=== PATIENT | female | born 1970 | race Caucasian/White ===

== ENCOUNTER → 2023-10-05 10:18 | Outpatient (REF) | payer OTHER, BC, SELFPAY ==
[2023-10-05 14:54] LABS: Hepatitis B Surface Antibody Negative
[2023-10-07 15:55] LABS: Varicella Zoster IgG (VZV) Positive
[2023-10-07 18:40] LABS: Quantiferon Mitogen minus NIL 8.78 IU/mL; Quantiferon NIL 0.03 IU/mL; Quantiferon Plus TB1 minus NIL 0.01 IU/mL (0.00-0.34); Quantiferon Plus TB2 minus NIL 0.01 IU/mL (0.00-0.34); Quantiferon TB Gold Plus Negative (Negative)
== END ==
LOC: OHS 10:18
PROVIDERS: ATTENDING PHYSICIAN Nurse Practitioner Family
DX: Z23 Encounter for immunization (principal)
CPT/HCPCS: 36415; 86480; 86706; 86787

== ENCOUNTER 2023-12-16 07:56 | Emergency (ER) | payer OTHER, BC, SELFPAY ==
[2023-12-16] VITALS (8 sets, daily range): BP systolic 103–153; BP diastolic 73–109; BMI 21.4
--- NOTE | 2023-12-16 08:35 | ED.GENMED ---
History of Present Illness
General
Chief Complaint: Abdominal Symptoms
Time Seen by Provider: 12/16/23 08:35
Travel History
Have you had any contact with someone who has COVID-19?: No
Do you have any symptoms of coronavirus? Fever > 100 degrees, chills, cough, shortness of breath, sore throat, loss of taste or smell, muscle aches, or headache?: No
History of Present Illness
History of Present Illness:
HPI: 2 days ago, the patient started having some general unwell feeling including nausea, vomiting, diarrhea, and abdominal pain. Yesterday and today the symptoms dramatically worsen. She does have a history of celiac disease and tries to avoid
gluten. She has been feeling dizzy recently 'from all the vomiting'.
EXAM:
GENERAL: The patient appears uncomfortable
HEENT: Moist oral mucosa
CARDIOVASCULAR: No murmurs, borderline tachycardic heart rate, regular rhythm, No chest wall tenderness
PULMONARY: No respiratory distress, breath sounds are clear and equal
ABDOMEN: Soft with no peritoneal signs, moderate diffuse abdominal tenderness
NEUROLOGIC: Excellent strength all extremities, no coordination deficits
PSYCHIATRIC: Appropriate mental status, normal insight and judgement
EXTREMITIES: Nontender, no edema, moves all extremities equally
SKIN: No rash, no lesions
TIME OF INITIAL ENCOUNTER: 8:35 AM
NUMBER AND COMPLEXITY OF PROBLEMS ADDRESSED AT THE ENCOUNTER
� Chronic conditions affecting care: Celiac disease, GERD, anxiety/depression, history of alcohol abuse
� Acute Exacerbation and/or Progression of Chronic Illness: This is an acute problem
� Differential Diagnosis includes: Exacerbation of celiac disease, GERD, bowel obstruction unlikely, viral syndrome, foodborne illness
AMOUNT AND/OR COMPLEXITY OF DATA TO BE REVIEWED AND ANALYZED
� I performed an independent evaluation of and my interpretation is:
EKG:
CT: CT imaging with IV contrast shows no acute abnormality
X-rays:
Laboratory Studies: White count 5.2, hemoglobin 14.9, sodium 136, potassium 3.1, total bili 2.7, alk phos normal, ketonuria without evidence of UTI, magnesium slightly low at 1.3
Other: I reviewed records, in September 2022, the patient's total bili was as high as 1.6 and then normalized down to 0.5 a few days later
� Review of other/old records: I reviewed records, the patient was here with alcohol withdrawal/hallucinations and admitted
� Clinical information was obtained by an independent historian: Spoke to daughter at bedside
� Prescriptions/Medications Considered but not given:
� Further testing considered but not performed:
RISK OF COMPLICATIONS AND/OR MORBIDITY OR MORTALITY OF PATIENT MANAGEMENT
� Social determinants of health affecting care: Lives at home, states she no longer drinks alcohol
� Discussion with other providers:
� Escalation of care including admission/observation vs risk of discharge considered: The patient appeared uncomfortable upon arrival. She was given IV fluids, Toradol, Zofran, and Pepcid. Given the amount of pain that she
reports that she is in and she does appear uncomfortable, will obtain CT imaging for further evaluation. Other than the fact that her 'tubes have been tight', she reports no other abdominal surgeries. On reassessment at 12:50 PM, the patient feels
improved. CT imaging relatively unremarkable. I have also given the contact information for local GI.
Past History
Past History
ED Past Medical History: Psychiatric (Anxiety) and Other (Celiac disease)
ED Past Surgical History: Gynecological and Orthopedic
Social History
Tobacco: Non-smoker
Alcohol: Daily (Vodka and Wine 2-3 glasses)
Drug: None
Personal:
Living: with family
Employment: Employed
Phy Exam
Physical Exam
Physical Exam:
See HPI
Course
Orders/Labs/Results
Orders:
Orders
12/16/23 08:24
Test Result ONCE
12/16/23 08:26
CMP [Comprehensive Metabolic Panel] Urgent
Complete Blood Count/With Diff Urgent
HCG, Serum Qualitative Screen Urgent
Lipase Urgent
Magnesium Urgent
Comment: ADD ON
Urinalysis Reflex To Culture Urgent
Date Specimen was Collected: 12/16/23
Time Specimen was Collected: 08:24
12/16/23 08:36
Add On- LAB Urgent
Tests Added?: magnesium
12/16/23 08:42
CT Abd/pelvis W Iv Cont Urgent
Comment:
Reason For Exam: severe abd pain/tender; NVD
0.9% Sodium Chloride 1000 ml [Nss] 1,000 ml IV BOLUS
Famotidine [Pepcid] 20 mg IV NOW STA
Ketorolac [Toradol] 15 mg IV NOW STA
Ondansetron Injectable [Zofran] 4 mg IV NOW STA
12/16/23 08:57
Potassium Chloride Powder [Klor-Con] 40 meq PO NOW STA
12/16/23 09:13
POTASSIUM PHOSPHATE 1mEq=0.7mM [Potassium Phosphate] 40 meq 0.9% Sodium Chloride 250 ml [Nss] 250 ml IV NOW
12/16/23 09:22
Potassium Chloride [KCl] 40 meq 0.9% Sodium Chloride 250 ml [Nss] 250 ml IV NOW
12/16/23 12:46
Magnesium Oxide 1,000 mg PO NOW STA
Abnormal Lab Results
12/16/23
08:26
MCH 33.7 H pg
(27.0-31.0)
Absolute Lymphs (auto) 1.1 L 10^3/uL
(1.2-3.4)
Monocytes % 9.4 H %
(1.7-9.3)
Potassium 3.1 L mmol/L
(3.5-5.1)
Chloride 93 L mmol/L
(98-107)
BUN 6 L mg/dl
(7-17)
Creatinine 0.5 L mg/dL
(0.6-1.0)
Glucose 119 H mg/dl
(70-99)
Magnesium 1.3 L mg/dl
(1.6-2.3)
Total Bilirubin 2.7 H mg/dl
(0.2-1.3)
AST 56 H U/L
(14-36)
ALT 40 H U/L
(0-35)
Albumin 5.2 H g/dl
(3.5-5.0)
Urine Ketones 1+ A
(Negative)
12/16/23 08:26
12/16/23 08:26
Vital Signs
Initial and Last Documented VS:
Initial Vital Signs
Temp Pulse Resp BP Pulse Ox
98.3 F 98 18 153/109 99
12/16/23 08:00 12/16/23 08:00 12/16/23 08:00 12/16/23 08:00 12/16/23 08:00
Last Documented Vital Signs
Temp Pulse Resp BP Pulse Ox
98.3 F 71 16 117/73 93
12/16/23 08:00 12/16/23 12:00 12/16/23 12:00 12/16/23 12:00 12/16/23 12:15
*Critical Care Note
Total Time (30-74mins, 75-104mins- exclusive of procedures): Not Applicable
ED Attending Note
-
Portions of this chart may have been created with voice recognition software.� Occasional wrong word or��sound alike� substitutions may have occurred due to the inherent limitations of voice recognition software.
Discharge Plan
Departure
Patient Disposition: Home (Routine Discharge)
Date of Disposition: 12/16/23
Time of Disposition: 12:49
Patient with high blood pressure during this ER visit?: Yes
Discharge Problem:
Abdominal pain
Instructions: Abdominal Pain
Prescriptions:
New
ondansetron HCl 4 mg tablet
4 mg PO Q8H PRN (Reason: nausea and vomiting) Qty: 14 0RF
No Action
ascorbic acid (vitamin C) [Vitamin C] 500 mg Tablet,Chewable
500 mg PO DAILY
ibuprofen 200 mg Tablet
400 mg PO Q6HPRN PRN (Reason: mild pain)
gabapentin 300 mg Capsule
300 mg PO BID
melatonin 5 mg Tablet,Chewable
5 mg PO HSPRN PRN (Reason: sleep)
Centrum Adults 12 mcg Tablet,Chewable
1 tab PO DAILY
Referrals:
Luisito Valerio, DO [Family Provider] -
Leti Frederick, [Active] - Follow up in 2-3 days
Activity Restrictions/Additional Instructions:
I sent a prescription for Zofran to your pharmacy. Return here if worse. I have also given the contact information for a local GI doctor, Dr. Frederick.
Interventions
Interventions:
*Risk Screen - Suicide Last Done: 12/16/23 08:00
*General Assessment Last Done: 12/16/23 08:00
*Neglect/Abuse Screening Last Done: 12/16/23 08:00
ED- Fall Risk Assessment Last Done: 12/16/23 09:07
*ED COVID-19 Vaccine History Last Done: 12/16/23 08:26
GG-Yuibmy-Mmvrvqnajs Assessment Last Done: 12/16/23 08:28
Discharge Date and Time
Print Language: TRISTANIAN
[2023-12-16 08:42] LABS: % Basophils 0.8 % (0-2); % Eosinophils 0.2 % (0-6); % Immature Granulocytes 0.2 % (0-0.5); % Lymphocytes 21.5 % (20.5-51.1); % Monocytes 9.4 % (1.7-9.3); % Neutrophils 67.9 % (42.2-75.2); Absolute Lymphocytes 1.1 10^3/uL (1.2-3.4); Absolute Monocytes 0.5 10^3/uL (0.1-0.6); Absolute Neutrophils 3.6 10^3/uL (1.4-6.5); Hematocrit 40.6 % (37.0-47.0); Hemoglobin 14.9 g/dL (12.0-16.0); Mean Corp Hgb Conc. 36.7 g/dL (33.0-37.0); Mean Corpuscular Hgb 33.7 pg (27.0-31.0); Mean Corpuscular Volume 91.9 fL (81.0-99.0); Mean Platelet Volume 8.9 fL (7.4-10.4); Nucleated Red Blood Cells % 0 %; Platelet Count 211 10^3/uL (130-400); Red Blood Cell Count 4.42 10^6/uL (4.20-5.40); Red Cell Dist. Width 13.1 % (11.5-14.5); White Blood Cell Count 5.2 10^3/uL (4.8-10.8)
[2023-12-16 08:55] LABS: AST (SGOT) 56 U/L (14-36); Albumin 5.2 g/dl (3.5-5.0); Alkaline Phosphatase 121 U/L (38-126); Blood Urea Nitrogen 6 mg/dl (7-17); Calcium 9.9 mg/dl (8.4-10.2); Carbon Dioxide 24 mmol/L (22-30); Chloride 93 mmol/L (98-107); Estimated Creatinine Clearance 87 ml/min; Glucose 119 mg/dl (70-99); Lipase 86 U/L (23-300); Potassium 3.1 mmol/L (3.5-5.1); Sodium 136 mmol/L (135-145); Total Bilirubin 2.7 mg/dl (0.2-1.3); Total Protein 8.2 g/dl (6.3-8.2); eGFR > 60.00
[2023-12-16 08:57] LABS: HCG, Serum Qualitative Screen Negative
[2023-12-16] MEDS: TORADOL 15 MG IV (08:59)
[2023-12-16] MEDS: ZOFRAN 4 MG IV (08:59)
[2023-12-16] MEDS: PEPCID 20 MG IV (08:59)
[2023-12-16] MEDS: NSS 1000 IV (09:00)
[2023-12-16 09:11] LABS: ALT (SGPT) 40 U/L (0-35); Magnesium 1.3 mg/dl (1.6-2.3)
[2023-12-16 09:15] LABS: Urine Albumin Negative (Neg - Trace); Urine Bilirubin Negative (Negative); Urine Character Clear (Clear); Urine Color Straw; Urine Glucose Negative (Negative); Urine Ketone 1+ (Negative); Urine Leukocyte Negative (Negative); Urine Nitrite Negative (Negative); Urine Occult Blood Negative (Negative); Urine Urobilinogen Negative (Neg - 1+)
[2023-12-16] MEDS: KCL 270 MEQ IV (09:33)
[2023-12-16] MEDS: MAGNESIUM OXIDE 1000 MG PO (12:56)
== END 2023-12-16 14:25 | disposition home or self-care (01) ==
LOC: EMR 07:56
PROVIDERS: EMERGENCY PHYSICIAN Emergency Medicine; FAMILY PHYSICIAN Family Medicine
DX: R10.9 Unspecified abdominal pain (principal); R11.2 Nausea with vomiting, unspecified; R19.7 Diarrhea, unspecified
CPT/HCPCS: 99284; 74177; 80053; 81003; 83690; 83735; 84703; 85025; Q9967

== ENCOUNTER 2024-12-26 10:09 | Emergency (ER) | payer BC, SELFPAY ==
[2024-12-26] VITALS (8 sets, daily range): BP systolic 113–137; BP diastolic 73–104
[2024-12-26 10:33] LABS: % Basophils 0.4 % (0-2); % Eosinophils 0.2 % (0-6); % Immature Granulocytes 0.4 % (0-0.5); % Lymphocytes 18.5 % (20.5-51.1); % Monocytes 4.8 % (1.7-9.3); % Neutrophils 75.7 % (42.2-75.2); Absolute Lymphocytes 1.1 10^3/uL (1.2-3.4); Absolute Monocytes 0.3 10^3/uL (0.1-0.6); Absolute Neutrophils 4.3 10^3/uL (1.4-6.5); Hematocrit 35.6 % (37.0-47.0); Hemoglobin 13.2 g/dL (12.0-16.0); Mean Corp Hgb Conc. 37.1 g/dL (33.0-37.0); Mean Corpuscular Volume 91.8 fL (81.0-99.0); Mean Platelet Volume 8.7 fL (7.4-10.4); Nucleated Red Blood Cells % 0 %; Platelet Count 148 10^3/uL (130-400); Red Blood Cell Count 3.88 10^6/uL (4.20-5.40); Red Cell Dist. Width 13.9 % (11.5-14.5); White Blood Cell Count 5.7 10^3/uL (4.8-10.8)
[2024-12-26 10:44] LABS: HCG, Serum Qualitative Screen Negative
[2024-12-26 10:45] LABS: ALT (SGPT) 16 U/L (0-35); AST (SGOT) 27 U/L (14-36); Albumin 4.5 g/dl (3.5-5.0); Alkaline Phosphatase 98 U/L (38-126); Blood Urea Nitrogen 6 mg/dl (7-17); Carbon Dioxide 22 mmol/L (22-30); Chloride 106 mmol/L (98-107); Glucose 115 mg/dl (70-99); Lipase 86 U/L (23-300); Potassium 3.3 mmol/L (3.5-5.1); Sodium 138 mmol/L (135-145); Total Bilirubin 1.1 mg/dl (0.2-1.3); Total Protein 7.1 g/dl (6.3-8.2); eGFR > 60.00
[2024-12-26] MEDS: NSS 1000 IV (11:45)
[2024-12-26] MEDS: ZOFRAN 4 MG IV ×2 (12:35→15:25)
[2024-12-26] MEDS: DILAUDID 1 MG IV (12:35)
--- NOTE | 2024-12-26 13:26 | ED.GENMED ---
History of Present Illness
General
Chief Complaint: Abdominal Symptoms
Source: patient
Exam Limitations: none
Time Seen by Provider: 12/26/24 11:08
Nursing documentation reviewed up to this point in time: agreed with
History of Present Illness
History of Present Illness:
The patient is a 54-year-old female with a past medical history significant for celiac disease and a previous problem with alcohol use (sober few years), presenting with nausea, vomiting, diarrhea, and abdominal pain. The symptoms began the
yesterday afternoon, pain continuous worst last p.m., could not sleep due to pain. Currently at a 7 out of 10. Has had frequent vomiting, with episodes of yellow vomitus, and the patient reports chills but denies fever, chest pain, or dyspnea.
Diarrhea started before the vomiting yesterday afternoon, was described as explosive and watery, and was most severe last night. There was one small bout of diarrhea this morning. There are no current urinary symptoms. The patient reports celiac
disease managed with dietary modifications, and she has been abstinent from alcohol following rehabilitation a few years ago. Medications include gabapentin for neuropathy. The patient denies recent travel or illness exposure. She lives with spouse
and mentioned some familial stress related to dining out with her due to dietary restrictions.
Medications:
Gabapentin 400 mg orally, once in the morning and once before bed.
Past History
Past History
ED Past Medical History: Psychiatric (Anxiety) and Other (Celiac disease)
ED Past Surgical History: Gynecological and Orthopedic
Social History
Tobacco: Non-smoker
Alcohol: None (Vodka and Wine 2-3 glasses)
Drug: None
Personal:
Living: with family
Employment: Employed
Review of Systems
Review of Systems
Allergies reviewed?: Yes
All Other Systems: ROS reviewed and negative except as documented in HPI and ROS
Constitutional: Reports chills; Denies fever
Respiratory: Denies trouble breathing
Cardiac: Denies chest pain
ABD/GI: Reports other (Nausea, vomiting, diarrhea, abdominal pain.)
: Denies dysuria
Musculoskeletal: Reports no symptoms
Skin: Reports no symptoms
Neurological: Reports no symptoms
Phy Exam
Physical Exam
Physical Exam:
GENERAL: Mild distress due to ladonna. A&Ox3.
CONSTITUTIONAL: Afebrile.
EYES: clear, conjunctivae normal
ENMT: moist mucus membranes, Pharynx nl
RESPIRATORY: Regular respirations, nonlabored, lungs clear.
CARDIOVASCULAR: Regular rate and rhythm, no murmurs, no rubs.
GI: Soft, generally tender, mildly distended, hypoactive BS
MUSCULOSKELETAL: Moves with ease. Well perfused.
SKIN: Warm, dry, pink
PSYCH: Anxious mood and affect. Well kept, interactive and appropriate
NEUROLOGIC: Awake, alert and oriented. No focal neurological deficits
Course
Orders/Labs/Results
Orders:
Orders
12/26/24 10:21
Test Result ONCE
12/26/24 10:23
Complete Blood Count/With Diff Urgent
Comprehensive Metabolic Panel Urgent
HCG, Serum Qualitative Screen Urgent
Lipase Urgent
12/26/24 11:40
CT Abd/Pel (IV only)-DH only Urgent
Comment:
Reason For Exam: generalize pain, diarrhea, n/v hx ceilac
12/26/24 11:41
0.9% Sodium Chloride 1000 ml [Nss] 1,000 ml IV BOLUS
HYDROmorphone [Dilaudid] 1 mg IV NOW STA
Ondansetron Injectable [Zofran] 4 mg IV NOW STA
12/26/24 14:22
Urinalysis Urgent
Date Specimen was Collected: 12/26/24
Time Specimen was Collected: 10:21
Urine Microscopic Urgent
Date Specimen was Collected: 12/26/24
Time Specimen was Collected: 10:21
12/26/24 14:24
Ondansetron Injectable [Zofran] 4 mg IV NOW STA
12/26/24 16:29
Lorazepam [Ativan] 0.5 mg IV NOW STA
Abnormal Lab Results
12/26/24 12/26/24
10: 14:22
RBC 3.88 L 10^6/uL
(4.20-5.40)
Hct 35.6 L %
(37.0-47.0)
MCH 34.0 H pg
(27.0-31.0)
MCHC 37.1 H g/dL
(33.0-37.0)
Absolute Lymphs (auto) 1.1 L 10^3/uL
(1.2-3.4)
Neutrophils % 75.7 H %
(42.2-75.2)
Lymphocytes % 18.5 L %
(20.5-51.1)
Potassium 3.3 L mmol/L
(3.5-5.1)
BUN 6 L mg/dl
(7-17)
Creatinine 0.5 L mg/dL
(0.6-1.0)
Glucose 115 H mg/dl
(70-99)
Urine Ketones 2+ A
(Negative)
Urine Occult Blood 2+ A
(Negative)
Urine Nitrite Positive A
(Negative)
Ur Leukocyte Esterase 1+ A
(Negative)
Urine RBC 3-6 A /HPF
(0-2)
Urine WBC 6-10 A /HPF
(0-5)
Urine Bacteria Moderate A
(Negative)
12/26/24 10:23
12/26/24 10:23
Vital Signs
Initial and Last Documented VS:
Initial Vital Signs
Pulse Resp
84 27
12/26/24 10:29 12/26/24 10:29
Last Documented Vital Signs
Temp Pulse Resp BP
98.7 F 83 19 125/79
12/26/24 10:41 12/26/24 18:00 12/26/24 18:00 12/26/24 18:00
MDM/Problems Addressed
Differential Diagnosis Includes:
The Differential Diagnosis includes, in no particular order and is not limited to:
1. Gastroenteritis
2. Celiac disease flare
3. Food poisoning
4. Small bowel obstruction
5. Pancreatitis
7. Gallbladder disease
8. Irritable bowel syndrome
9. Viral gastroenteritis
MDM/Problems Addressed:
The patient is a 54-year-old female with a past medical history significant for celiac disease and a previous problem with alcohol use (sober few years), presenting with sudden onset nausea, vomiting, diarrhea, and abdominal pain. Different than her
Celiac pain she states.
The symptoms began the yesterday afternoon, pain continuous worst last p.m., could not sleep due to pain. Currently at a 7 out of 10. Has had frequent vomiting, with episodes of yellow vomitus, and the patient reports chills but denies fever, chest
pain, or dyspnea. Diarrhea started before the vomiting yesterday afternoon, was described as explosive and watery, and was most severe last night. There was one small bout of diarrhea this morning. There are no current urinary symptoms. The patient
reports celiac disease managed with dietary modifications, and she has been abstinent from alcohol following rehabilitation a few years ago. Medications include gabapentin for neuropathy. The patient denies recent travel or illness exposure. She
lives with spouse and mentioned some familial stress related to dining out with her due to dietary restrictions.
Medications:
Gabapentin 400 mg orally, once in the morning and once before bed.
11:30
CBC: No clinically significant abnormality
CMP: No clinically significant abnormality
Lipase normal
Pt feeling much better
Plan:
- Initiate IV fluids for rehydration.
- Administer antiemetics for nausea.
- Administer analgesics for pain management.
- Order abdominal CT scan to assess for any acute abdominal pathology.
- Advise follow-up with a gastrointestinal specialist for further management of celiac disease and dietary planning.
4:30 PM:
Awaiting CAT scan results
Patient has been extremely anxious intermittently, tearful, she just told me she was just sitting there watching TV when all of a sudden she got suddenly nauseous and vomited she is very restless and. She states her PCP just prescribe something for
her for anxiety but she does not know what it is. Will give a small dose of Ativan
5:00 PM:
CT abdomen pelvis IV only contrast radiology report read: IMPRESSION: Small central hiatal hernia.
Fatty infiltration of the liver.
Several hepatic cysts.
The appendix appears normal.
No significantly enlarged lymph nodes are identified. There are no findings that would suggest lymphoma in this patient with a history of celiac disease.
There has been no diarrhea since arrival. vomited x 2. Feeling better after medications and IVFs.
Most likely viral gastroenteritis.
Plan:
Rx for antiemetic sent to her pharmacy. Prescription for Bentyl sent to her pharmacy. She may use antidiarrheal medications
Refer to GI
*Pulse Oximetry
Patient hypoxic: not evaluated
*Critical Care Note
Total Time (30-74mins, 75-104mins- exclusive of procedures): Not Applicable
ED Attending Note
-
Portions of this chart may have been created with voice recognition software.� Occasional wrong word or��sound alike� substitutions may have occurred due to the inherent limitations of voice recognition software.
Discharge Plan
Departure
Patient Disposition: Home (Routine Discharge)
Date of Disposition: 12/26/24
Time of Disposition: 17:00
Patient with high blood pressure during this ER visit?: No
Condition: Fair
Discharge Problem:
Viral gastroenteritis
Instructions: Diarrhea in teens and adults, Viral gastroenteritis in adults, Nausea and Vomiting, Adult (DC)
Prescriptions:
New
dicyclomine 20 mg tablet
20 mg PO QID PRN (Reason: abdominal pain/cramps) Qty: 20 0RF
ondansetron 4 mg tablet,disintegrating
4 mg PO Q8H PRN (Reason: nausea and vomiting) 5 Days Qty: 15 0RF
No Action
ascorbic acid (vitamin C) [Vitamin C] 500 mg Tablet,Chewable
500 mg PO DAILY
ibuprofen 200 mg Tablet
400 mg PO Q6HPRN PRN (Reason: mild pain)
gabapentin 300 mg Capsule
300 mg PO BID
melatonin 5 mg Tablet,Chewable
5 mg PO HSPRN PRN (Reason: sleep)
Centrum Adults 12 mcg Tablet,Chewable
1 tab PO DAILY
ondansetron HCl 4 mg tablet
4 mg PO Q8H PRN (Reason: nausea and vomiting) Qty: 14 0RF
Referrals:
Henny Tse MD [Active, Gastroenterology] - Next open appointment
Luisito Valerio DO [Family Provider, Family Practice]
Activity Restrictions/Additional Instructions:
As we discussed, your CAT scan shows nothing worrisome. Your lab work is normal. You most likely have viral gastroenteritis
I sent a prescription to your pharmacy for Zofran to use as needed for nausea and vomiting and for Bentyl to use as needed for stomach cramping or pains.
Drink plenty of fluids
Interventions
Interventions:
*Risk Screen - Suicide Last Done: 12/26/24 10:42
*General Assessment Last Done: 12/26/24 10:42
*Neglect/Abuse Screening Last Done: 12/26/24 10:42
*ED- Fall Risk Assessment Last Done: 12/26/24 10:42
*ED COVID-19 Vaccine History Last Done: 12/26/24 18:25
*Nursing Disposition Last Done: 12/26/24 18:25
QR-Ddtulv-Mwdikqtoyj Assessment Last Done: 12/26/24 10:41
Discharge Date and Time
Discharge Date/Time: 12/26/24 18:26
Print Language: SERBIAN
[2024-12-26 14:29] LABS: Urine Albumin Negative (Neg - Trace); Urine Bilirubin Negative (Negative); Urine Character Slightly Cloudy (Clear); Urine Color Yellow; Urine Glucose Negative (Negative); Urine Ketone 2+ (Negative); Urine Leukocyte 1+ (Negative); Urine Nitrite Positive (Negative); Urine Occult Blood 2+ (Negative); Urine Urobilinogen Negative (Neg - 1+)
[2024-12-26 14:48] LABS: Urine Amorphous Seen; Urine Calcium Oxalate Crystals Seen; Urine Squamous Cell >30 /LPF (Few)
[2024-12-26 14:51] LABS: Urine Bacteria Moderate (Negative)
[2024-12-26] MEDS: ATIVAN 0.5 MG IV (16:40)
== END 2024-12-26 18:26 | disposition home or self-care (01) ==
LOC: EMR 10:09
PROVIDERS: EMERGENCY PHYSICIAN Emergency Medicine; FAMILY PHYSICIAN Family Medicine
DX: A08.4 Viral intestinal infection, unspecified (principal); G62.9 Polyneuropathy, unspecified; K90.0 Celiac disease
CPT/HCPCS: 99285; 96374; 96375 ×2; 96361; 96376; 74177; 80053; 81003; 81015; 83690; 84703; 85025; Q9967

== ENCOUNTER 2025-03-28 09:07 | Emergency (ER) | payer BC, SELFPAY ==
[2025-03-28 09:09] VITALS: BP 146/83
[2025-03-28 09:13] VITALS: BMI 23.2
--- NOTE | 2025-03-28 09:14 | ED.GENMED ---
History of Present Illness
General
Chief Complaint: Abdominal Symptoms
Time Seen by Provider: 03/28/25 09:09
History of Present Illness
History of Present Illness:
54-year-old female with history of celiac disease, GERD, prior alcohol abuse in remission, and anxiety presents to the emergency department for evaluation of intractable vomiting and diarrhea for the past 3 days. States symptoms began rapidly after
eating and he tuna salad from a local [employer] restaurant. She thought initially that it may be cross-contamination with gluten containing products however typically those symptoms resolve within several hours. She reports intermittent abdominal
discomfort as well as hand and foot spasms associated with profuse vomiting. Denies any fevers or sweats. Prior abdominal surgical history includes tubal ligation.
Past History
Past History
ED Past Medical History: Psychiatric (Anxiety) and Other (Celiac disease)
ED Past Surgical History: Gynecological and Orthopedic
Social History
Tobacco: Non-smoker
Alcohol: None (Vodka and Wine 2-3 glasses)
Drug: None
Personal:
Living: with family
Employment: Employed
Review of Systems
Review of Systems
Allergies reviewed?: Yes
All Other Systems: ROS reviewed and negative except as documented in HPI and ROS
Phy Exam
Physical Exam
Physical Exam:
GEN: Anxious and visibly uncomfortable, well-developed well-nourished
HEENT: Oral mucosa moist, no scleral icterus
Cardiac: Tachycardic, regular
Lung: No respiratory distress, no tachypnea, lungs clear
Abdomen: Soft, grossly nontender
MSK: No gross deformity or injuries
Skin: Good color, no pallor or jaundice, no rashes
Neuro: AO x3, moves all extremities freely
Psych: Anxious but cooperative
Sepsis
Sepsis Screening
Sepsis Assessment: Sepsis Ruled Out
Sepsis Screen
Sepsis Screen: Sepsis Ruled Out
Date: 03/28/25
Time: 16:07
Course
Orders/Labs/Results
Orders:
Orders
03/28/25 09:13
0.9% Sodium Chloride 1000 ml [Nss] 1,000 ml IV BOLUS
Metoclopramide [Reglan] 10 mg IV NOW STA
03/28/25 09:14
Diphenhydramine [Benadryl] 12.5 mg IV NOW STA
03/28/25 09:16
Electrocardiogram (*1) Urgent
Reason for Study: QTc Monitoring
EKG- Treatment ONCE
03/28/25 09:25
Complete Blood Count/With Diff Urgent
Comprehensive Metabolic Panel Urgent
Lipase Urgent
Magnesium Urgent
03/28/25 09:50
Magnesium Sulfate 2 Gram/50 ml [Magnesium Sulfate] 2 gram in 50 ml IV NOW
03/28/25 10:43
Potassium Chloride [KCl] 20 meq 0.9% Sodium Chloride 150 ml [Nss] 150 ml IV NOW
Abnormal Lab Results
03/28/25
09:25
MCH 33.3 H pg
(27.0-31.0)
Lymphocytes % 17.7 L %
(20.5-51.1)
Potassium 3.1 L mmol/L
(3.5-5.1)
Glucose 130 H mg/dl
(70-99)
Calcium 10.3 H mg/dl
(8.4-10.2)
Magnesium 1.5 L mg/dl
(1.6-2.3)
Total Bilirubin 3.0 H mg/dl
(0.2-1.3)
AST 38 H U/L
(14-36)
03/28/25 09:25
03/28/25 09:25
Vital Signs
Initial and Last Documented VS:
Initial Vital Signs
Pulse Resp BP Pulse Ox
103 20 146/83 99
03/28/25 09:09 03/28/25 09:09 03/28/25 09:09 03/28/25 09:09
Last Documented Vital Signs
Temp Pulse Resp BP Pulse Ox
98.6 F 88 19 126/73 98
03/28/25 09:14 03/28/25 13:00 03/28/25 13:00 03/28/25 13:00 03/28/25 09:30
MDM/Problems Addressed
MDM/Problems Addressed:
Majority of patient's symptoms improved after IV hydration and electrolyte repletion, suspect this is a self-limited viral syndrome versus foodborne pathogen, given that she is otherwise healthy with no immunocompromise no indication for stool
sampling at this time however advised the patient that if she continues to have worsening symptoms particularly continued diarrhea she may warrant stool specimens and consideration of antibiotics. She had a benign abdominal exam and thus no
indication for CT of the abdomen pelvis
*Pulse Oximetry
SaO2: 99
Oxygen Mode of Delivery: Room air
Patient hypoxic: no
*Critical Care Note
Total Time (30-74mins, 75-104mins- exclusive of procedures): Not Applicable
ED Attending Note
-
Portions of this chart may have been created with voice recognition software.� Occasional wrong word or��sound alike� substitutions may have occurred due to the inherent limitations of voice recognition software.
Discharge Plan
Departure
Patient Disposition: Home (Routine Discharge)
Date of Disposition: 03/28/25
Time of Disposition: 12:52
Patient with high blood pressure during this ER visit?: No
Discharge Problem:
Gastroenteritis
Instructions: Diarrhea in teens and adults
Prescriptions:
New
ondansetron 4 mg tablet,disintegrating
4 mg PO TIDPRN PRN (Reason: nausea/vomiting) Qty: 10 0RF
No Action
ondansetron 4 mg tablet,disintegrating
4 mg PO Q8HPRN PRN (Reason: nausea and vomiting)
diphenhydramine HCl [Sleep Aid (diphenhydramine)] 25 mg Capsule
25 mg PO HSPRN PRN (Reason: SLEEP)
alum-mag hydroxide-simeth [Mylanta] 200-200-20 mg/5 mL Suspension
10 ml PO DAILYPRN PRN (Reason: GERD)
gabapentin 400 mg Tablet
400 mg PO BID
acetaminophen 325 mg/10.15 mL Solution
325 mg PO BIDPRN PRN (Reason: MILD PAIN)
Referrals:
Johnny Dent DO [Family Provider, Family Practice]
Interventions
Interventions:
*Risk Screen - Suicide Last Done: 03/28/25 09:21
*General Assessment Last Done: 03/28/25 09:21
*Neglect/Abuse Screening Last Done: 03/28/25 09:21
*Nursing Disposition Last Done: 03/28/25 13:37
RL-Ivxxkr-Cycnglwzne Assessment Last Done: 03/28/25 09:47
Discharge Date and Time
Discharge Date/Time: 03/28/25 13:38
Print Language: PORTUGUESE
[2025-03-28] MEDS: REGLAN 10 MG IV (09:17)
[2025-03-28] MEDS: NSS 1000 IV (09:17)
[2025-03-28] MEDS: BENADRYL 12.5 MG IV (09:17)
[2025-03-28 09:36] LABS: Hematocrit 41.5 % (37.0-47.0); Hemoglobin 14.9 g/dL (12.0-16.0); Mean Corp Hgb Conc. 35.9 g/dL (33.0-37.0); Mean Corpuscular Volume 92.6 fL (81.0-99.0); Nucleated Red Blood Cells % 0 %; Platelet Count 243 10^3/uL (130-400); Red Cell Dist. Width 14.2 % (11.5-14.5)
[2025-03-28 09:47] LABS: AST (SGOT) 38 U/L (14-36); Albumin 4.9 g/dl (3.5-5.0); Alkaline Phosphatase 103 U/L (38-126); Blood Urea Nitrogen 11 mg/dl (7-17); Calcium 10.3 mg/dl (8.4-10.2); Carbon Dioxide 24 mmol/L (22-30); Chloride 98 mmol/L (98-107); Estimated Creatinine Clearance 86 ml/min; Glucose 130 mg/dl (70-99); Lipase 56 U/L (23-300); Magnesium 1.5 mg/dl (1.6-2.3); Potassium 3.1 mmol/L (3.5-5.1); Sodium 135 mmol/L (135-145); Total Protein 7.9 g/dl (6.3-8.2); eGFR > 60.00
[2025-03-28 10:00] VITALS: BP 109/73
[2025-03-28] MEDS: MAGNESIUM SULFATE 50 IV (10:12)
[2025-03-28 10:24] LABS: ALT (SGPT) 32 U/L (0-35)
[2025-03-28 11:00] VITALS: BP 114/71
[2025-03-28] MEDS: KCL 160 MEQ IV (11:00)
[2025-03-28 12:00] VITALS: BP 124/75
[2025-03-28 13:00] VITALS: BP 126/73
== END 2025-03-28 13:38 | disposition home or self-care (01) ==
LOC: EMR 09:07
PROVIDERS: Physician Assistant; EMERGENCY PHYSICIAN Emergency Medicine; FAMILY PHYSICIAN Family Medicine
DX: K52.9 Noninfective gastroenteritis and colitis, unspecified (principal); K90.0 Celiac disease
CPT/HCPCS: 96365; 96375; 96361; 99284; 80053; 83690; 83735; 85025; 93005